=== PATIENT | male | born 1995 | race Caucasian/White ===

== ENCOUNTER 2016-10-30 16:32 | Emergency (ER) | payer OTHER ==
[~2016-10-30] VITALS: Ht 185.4 cm; Wt 77.1 kg
[2016-10-30 17:01] VITALS: BP_SYST 117
[2016-10-30] MEDS ORDERED: PENICILLIN G BENZATHINE 1.2 MMU/2 ML SYR IM ONE (18:00)
[2016-10-30] MEDS ORDERED: KETOROLAC TROMETHAMINE 60 MG/2 ML VIAL IM ONE (18:30)
[2016-10-30 18:33] VITALS: BP_SYST 117
== END 2016-10-30 18:33 | disposition home or self-care (01) ==
LOC: SED 16:32
DX: J02.0 Streptococcal pharyngitis (principal); B95.0 Streptococcus, group A, as the cause of diseases classified elsewhere
CPT/HCPCS: 36415; 86403; 96372; 99284; J0561; J1885